=== PATIENT | male | born 1980 | race Caucasian/White ===

== ENCOUNTER 2018-03-24 13:41 | Emergency (ER) | payer OTHER ==
[~2018-03-24] VITALS: Ht 182.9 cm; Wt 118.0 kg
[2018-03-24 14:06] VITALS: BP 152/92
[2018-03-24] MEDS ORDERED: silver sulfadiazine cream 400gm jar TP SCH (16:10)
[2018-03-24] MEDS ORDERED: ketorolac tromethamine 15mg/ml inj. IM ONE (16:15)
[2018-03-24] MEDS ORDERED: SILV20CR13 TOP (16:19)
[2018-03-24] MEDS ORDERED: silver sulfadiazine cream 50gm TP ONE (16:35)
== END 2018-03-24 16:52 | disposition home or self-care (01) ==
LOC: ER 13:41
DX: T21.22XA Burn of second degree of abdominal wall, initial encounter (principal); Z87.442 Personal history of urinary calculi; Z98.890 Other specified postprocedural states; Z90.89 Acquired absence of other organs; Z88.6 Allergy status to analgesic agent; Z88.5 Allergy status to narcotic agent; Z79.899 Other long term (current) drug therapy; X08.8XXA Exposure to other specified smoke, fire and flames, initial encounter; Y93.89 Activity, other specified; Y92.89 Other specified places as the place of occurrence of the external cause; Y99.9 Unspecified external cause status
CPT/HCPCS: 96372; 99283; J1885